=== PATIENT | male | born 1945 | race Caucasian/White ===

== ENCOUNTER → 2018-04-11 | Outpatient (CLI) | payer MEDICARE ==
--- NOTE | 2018-04-11 10:32 | P.STRESS ---
- Stress Test Note Stress Test Results/Findings: Exam Performed: stress echo exercise with con Exam Date: 04/11/18 Reason for Exam: Abn Ekg Height: 5 ft 8 in Weight: 83.915 kg Protocol: Stress Echo Stage: III Duration of Exercise: 9:30 Resting Heart Rate: 68 Resting Blood Pressure: 126/53 Maximum Achieved Heart Rate: 132 Maximum Achieved Blood Pressure: 154/72 85% PMHR: 124 100% PMHR: 146 METS: 11.1 Technologist Comment: Stress Test Results/Findings: Baseline heart rate 68 beats a minute, Baseline blood pressure 126/53 mmHg Baseline twelve-lead ECG shows sinus rhythm with normal cardiac intervals T- wave inversions inferolaterally Baseline 2-D echo images show normal LV systolic function with a distal septal hypokinesis Patient exercised on a Mohamud protocol for 9 minutes 30 seconds achieving a peak heart rate of 132 beats a minute, normal blood pressure response to exercise No ECG evidence for ischemia no exercise induced arrhythmias Echo contrast used Augmentation of overall LV contractility including the distal septum without development of any new wall motion abnormality @Recovery regional and global systolic function remained unchanged. Impression Good exercise capacity without ECG or echocardiographic evidence for ischemia
== END | disposition home or self-care (01) ==
LOC: RADNMMAIN 09:06
PROVIDERS: ATTEND Internal Medicine
DX: I25.10 Atherosclerotic heart disease of native coronary artery without angina pectoris (principal)
CPT/HCPCS: C8930; Q9950; 93351

== ENCOUNTER → 2021-07-10 | Outpatient (CLI) | payer MEDICARE ==
--- NOTE | 2021-07-10 10:48 | NM ---
EXAMINATION TYPE: NM stress cardiolite complete DATE OF EXAM: 07/10/2021 COMPARISON: NONE HISTORY: Chest pain TECHNIQUE: After the intravenous administration of 9.3 mCi Tc 99m Sestamibi - Rest images obtained 4 5 minutes post injection. The patient exercised using a JOSE protocol and 1 minute prior to peak e xercise was injected with 25.3 mCi Tc 99m Sestamibi - Stress images obtained 15 minutes post injectio n. FINDINGS: Targeted heart rate was achieved during performance of the study. Review of stress and rest SPECT anahi ges demonstrates fixed defects involving the apex of the myocardium. There also appears to be a small area of stress-induced reversibility involving the apical lateral and apical inferior myocardium.. Gated analysis shows normal wall motion with an estimated left ventricular ejection fraction of 39 %. Report called 07/10/2021 10:44 AM to referring clinician by telephone. IMPRESSION: 1. Findings are suspicious for a small area of stress-induced reversible ischemia involving the apica l inferior and apical lateral myocardium. 2. Ejection fraction of 39%.
--- NOTE | 2021-07-10 16:51 | P.STRESS ---
- Stress Test Note Stress Test Results/Findings: Exam Performed: NM stress cardiolite complete Exam Date: 07/10/21 Reason for Exam: CAD Height: 5 ft 8 in Weight: 86.4 kg Protocol: CARDIOLITE JOSE Stage: 3 Duration of Exercise: 9:00 Resting Heart Rate: 74 Resting Blood Pressure: 140/86 Maximum Achieved Heart Rate: 134 Maximum Achieved Blood Pressure: 179/82 85% PMHR: 122 100% PMHR: 143 METS: 10.3 Technologist Comment: Stress Test Results/Findings: Baseline heart rate 74 beats a minute, Baseline blood pressure 140/86. His mercury Patient exercised on a Jose protocol for 9 minutes, achieving a peak heart rate 134 beats a minute Normal blood pressure response Baseline 12-lead EKG showed sinus rhythm with T-wave inversions in V5 and V6 and in lead 1 Occasional PVCs noted which continued throughout the test There is no ECG is for ischemia no sustained arrhythmias noted Nuclear portion will be reported separately
== END | disposition home or self-care (01) ==
LOC: RADNMMAIN 08:03
PROVIDERS: ATTEND Internal Medicine
DX: R07.9 Chest pain, unspecified (principal)
CPT/HCPCS: 93017; 78452; A9500

== ENCOUNTER 2023-02-12 10:40 | Day surgery (SDC) | payer MEDICARE ==
[2023-02-07 11:19] VITALS: BMI 28.8
[~2023-02-12 10:40] MED LIST: LACTATED RINGERS 1,000 ML IV SCH; LIDOCAINE 1% (10MG/ML) FOR IV START INTRADERMA PRN
[2023-02-12 11:14] VITALS: TEMP 97.7
[2023-02-12] MEDS ORDERED: PROPOFOL 10 MG/ML 20 ML VIAL IV ONE (11:29)
--- NOTE | 2023-02-12 11:30 | P.GSHP ---
History of Present Illness H&P Date: 02/12/23 Chief Complaint: Screening with history of polyps 77-year-old male here for colonoscopy. Last colonoscopy 2017. Patient had for adenomatous polyps. Family history of colon cancer in his brother. No current bowel complaints. Past Medical History Past Medical History: Coronary Artery Disease (CAD), Eye Disorder, Hyperlipidemia, Myocardial Infarction (NC), Osteoarthritis (OA), Thyroid Disorder Additional Past Medical History / Comment(s): MACULAR DEGENERATION Last Myocardial Infarction Date:: 1992 History of Any Multi-Drug Resistant Organisms: None Reported Past Surgical History: Back Surgery, Heart Catheterization, Hernia Repair, Tonsillectomy Additional Past Surgical History / Comment(s): LEFT CATARACT REMOVAL 08/2014. RIGHT CATARACT REMOVAL 02/22/2015. CARDIAC-ANGIPLASTY Past Anesthesia/Blood Transfusion Reactions: No Reported Reaction Smoking Status: Former smoker - Past Family History Mother Family Medical History: No Reported History Medications and Allergies Home Medications Medication Instructions Recorded Confirmed Type Aspirin 81 mg PO DAILY 09/01/14 02/07/23 History Atorvastatin [Lipitor] 80 mg PO HS 09/01/14 02/07/23 History allopurinoL [Zyloprim] 100 mg PO DAILY PRN 09/01/14 02/07/23 History Cholecalciferol [Vitamin D3 (25 50 mcg PO MO 02/07/23 02/07/23 History Mcg = 1000 Iu)] Clopidogrel [Plavix] 75 mg PO DAILY 02/07/23 02/07/23 History Krill/Barclay-3/Dha/Epa/Lipids 1 each PO DAILY 02/07/23 02/07/23 History [Krill Oil 350 mg Softgel] Levothyroxine Sodium [Synthroid] 50 mcg PO DAILY 02/07/23 02/07/23 History Niacin 500 mg PO BID 02/07/23 02/07/23 History Ranolazine [Ranolazine ER] 500 mg PO Q12HR 02/07/23 02/07/23 History Ubidecarenone [Coq-10] 100 mg PO DAILY 02/07/23 02/07/23 History Vit C/E/Zn/Coppr/Lutein/Zeaxan 1 tab PO DAILY 02/07/23 02/07/23 History [Preservision Areds 2 Chew Tab] Allergies Allergy/AdvReac Type Severity Reaction Status Date / Time No Known Allergies Allergy Verified 02/12/23 11:14 Surgical - Exam Vital Signs Temp Pulse Resp BP Pulse Ox 97.7 F 83 18 133/73 97 02/12/23 11:13 02/12/23 11:13 02/12/23 11:13 02/12/23 11:13 02/12/23 11:13 Physical exam: General: Well-developed, well-nourished HEENT: Normocephalic, sclerae nonicteric Abdomen: Nontender, nondistended Extremities: No edema Neuro: Alert and oriented Assessment and Plan (1) Colon cancer screening Narrative/Plan: Will proceed with colonoscopy at this time. Current Visit: Yes Status: Acute Code(s): Z12.11 - ENCOUNTER FOR SCREENING FOR MALIGNANT NEOPLASM OF COLON SNOMED Code(s): 217853068
--- NOTE | 2023-02-12 11:59 | P.PCN ---
Date of Procedure: 02/12/23 Procedure(s) Performed: PREOPERATIVE DIAGNOSIS: Screening with history of polyps POSTOPERATIVE DIAGNOSIS: Numerous colonic polyps PROCEDURE: Colonoscopy with snare polypectomy ANESTHESIA: MAC SURGEON: Malachi Escudero M.D. SPECIMENS: Polyps ENDOSCOPIC PROCEDURE: The patient was placed on the endoscopy table in the left decubitus position. The Olympus colonoscope was inserted into the anus and passed under direct visualization to the base of the cecum. The appendiceal orifice was visualized. From that point the scope was slowly withdrawn inspecting all surfaces carefully. There were no neoplastic inflammatory or polypoid lesions throughout the cecum. In the ascending colon there were 3 small polyps removed using the snare with cautery technique. In the proximal transverse colon there were 4 polyps removed using the snare with cautery technique. In the descending colon at 50 cm a 1 cm polyp was removed using the snare with cautery technique. Another small polyp was seen next to that as well. That was removed in a similar fashion. The remainder of the descending sigmoid and rectum appeared normal. There was no visible diverticulosis. Digital rectal examination was normal. The patient was taken to the recovery room in stable condition per anesthesia guidelines. RECOMMENDATIONS: Await biopsy results. Repeat colonoscopy 1-2yrs.
[2023-02-12 12:05] VITALS: RESP 16
[2023-02-12 12:59] VITALS: BP 130/81; PULSE 62
== END 2023-02-12 12:44 | disposition home or self-care (01) ==
LOC: ORWHC2ENDO 10:40
PROVIDERS: ATTEND Surgery
DX: Z12.11 Encounter for screening for malignant neoplasm of colon (principal); D12.2 Benign neoplasm of ascending colon; D12.3 Benign neoplasm of transverse colon; Z80.0 Family history of malignant neoplasm of digestive organs; I25.10 Atherosclerotic heart disease of native coronary artery without angina pectoris; E78.5 Hyperlipidemia, unspecified; I25.2 Old myocardial infarction; M19.90 Unspecified osteoarthritis, unspecified site; E07.9 Disorder of thyroid, unspecified; Z90.89 Acquired absence of other organs; Z98.42 Cataract extraction status, left eye; Z86.010 Personal history of colon polyps; Z87.891 Personal history of nicotine dependence; Z79.82 Long term (current) use of aspirin; Z79.899 Other long term (current) drug therapy; Z79.02 Long term (current) use of antithrombotics/antiplatelets
CPT/HCPCS: 88305; 45385; J2704

== ENCOUNTER → 2024-03-13 | Outpatient (CLI) | payer MEDICARE ==
--- NOTE | 2024-03-13 15:48 | US ---
EXAMINATION TYPE: US kidneys/renal and bladder DATE OF EXAM: 03/13/2024 COMPARISON: NONE CLINICAL INDICATION: Male, 78 years old with history of N28.9 abnormal kidney function; Abnormal labs EXAM MEASUREMENTS: Right Kidney: 11.0 x 5.8 x 6.7 cm Left Kidney: 11.0 x 5.1 x 4.6 cm Right Kidney: No evidence of hydro, polycystic with largest cyst at mid= 3.5 x 2.8 x 3.0 cm Left Kidney: No evidence of hydro, polycystic with largest cyst mid= 3.0 x 2.0 x 3.1 cm, possible darlene culi lower pole= 0.8 cm Bladder: Possible thickened wall Bilateral Jets seen: No IMPRESSION: 1. No solid renal mass or hydronephrosis. 2. Bilateral simple cortical cysts. The largest right cyst is 3.5 cm and the largest left cyst is 3.0 cm. 3. Nonobstructing 8 mm calcification lower pole left kidney 4. Trabeculation of the urinary bladder
== END | disposition home or self-care (01) ==
LOC: RADUSWWP 13:51
PROVIDERS: ATTEND Internal Medicine
DX: N28.9 Disorder of kidney and ureter, unspecified (principal); R94.4 Abnormal results of kidney function studies
CPT/HCPCS: 76770